=== PATIENT | female | born 1980 | race Caucasian/White ===

== ENCOUNTER 2020-03-09 08:03 | Emergency (ER) | payer OTHER ==
[~2020-03-09] VITALS: Ht 162.6 cm; Wt 68.0 kg
[~2020-03-09 08:03] MED LIST: ACYCLOVIR 400400 MG PO; ATIVAN0.5 MG PO; CEFDINIR300 MG PO; CELEXA; CELEXA10 MG PO; FLAGYL500 M1 PO; HYDROXYZINE HCL25 M2 PO; IBUPROFEN 600600 M1 PO; MACROBID 100 M100 M1 PO; MIDOL CAPLET1 EAC1 PO; NORCO 5-325 TA1 EACH PO; ORTHO-CYCLEN1 EACH; PREMARIN; PRENATAL PO; PROTONIX40 M1 PO; ZOFRAN ODT4 MG PO; ZOFRAN4 MG PO
[2020-03-09 08:50] LABS: HEMATOCRIT 43.1 % (37.0-47.0); HEMOGLOBIN 14.3 gm/dL (12.0-15.0); MCH 32.7 pg (26.0-34.0); MCHC 33.2 g/dL (28.0-37.0); MCV 98.3 fL (80.0-100.0); RBC 4.38 mil/uL (4.20-5.00); WBC 22.2 thou/uL (4.0-11.0)
[2020-03-09 09:18] LABS: URINE BILIRUBIN NEGATIVE (Negative); URINE BLOOD NEGATIVE (Negative); URINE CLARITY CLOUDY; URINE COLOR YELLOW; URINE GLUCOSE-RANDOM* NEGATIVE (Negative); URINE KETONES NEGATIVE (Negative); URINE LEUKOCYTES-REFLEX NEGATIVE (Negative); URINE NITRITE-REFLEX NEGATIVE (Negative); URINE PROTEIN (DIPSTICK) NEGATIVE (Negative); URINE SPECIFIC GRAVITY >= 1.030 (1.005-1.035); URINE UROBILINOGEN 0.2 E.U./dl (0.2-1.0)
[2020-03-09 10:16] LABS: ABSOLUTE NEUTROPHILS 16.2 thou/uL (1.4-8.2)
[2020-03-09 10:16] LABS: CALCIUM 9.1 mg/dL (8.5-10.1); CREATININE 0.5 mg/dL (0.6-1.0)
[2020-03-09 10:22] LABS: TOTAL BILIRUBIN 0.4 mg/dL (0.2-1.0); TOTAL PROTEIN 7.3 g/dL (6.4-8.2)
[2020-03-09 10:23] LABS: POTASSIUM 4.2 mmol/L (3.5-5.1)
[2020-03-09 10:25] LABS: ANISOCYTOSIS 1+; PLATELET COUNT 414 thou/uL (150-400)
[2020-03-09] MEDS ORDERED: ZOFRAN ODT4 MG PO (12:22)
[2020-03-09] MEDS ORDERED: PROTONIX40 M2 PO (12:22)
[2020-03-09] MEDS ORDERED: CIPROFLOXACIN500 M1 PO (12:22)
[2020-03-09] MEDS ORDERED: TRAMADOL 50 MG50 MG PO (12:22)
[2020-03-09] MEDS ORDERED: FLAGYL500 M1 PO (12:22)
[2020-03-09 12:30] VITALS: BP 104/56
== END 2020-03-09 12:30 | disposition home or self-care (01) ==
LOC: ER 08:03
PROVIDERS: Emergency Medicine
DX: K52.9 Noninfective gastroenteritis and colitis, unspecified (principal); R11.2 Nausea with vomiting, unspecified; R42 Dizziness and giddiness; K92.1 Melena; R30.0 Dysuria; I25.2 Old myocardial infarction; F32.9 Major depressive disorder, single episode, unspecified; F41.9 Anxiety disorder, unspecified; F17.210 Nicotine dependence, cigarettes, uncomplicated; Z90.49 Acquired absence of other specified parts of digestive tract; Z79.899 Other long term (current) drug therapy; Z88.8 Allergy status to other drugs, medicaments and biological substances

== ENCOUNTER 2020-07-04 14:56 | Emergency (ER) | payer OTHER ==
[~2020-07-04] VITALS: Ht 162.6 cm; Wt 68.0 kg
[~2020-07-04 14:56] MED LIST changes: +CIPROFLOXACIN500 M1 PO; +PROTONIX40 M2 PO; +TRAMADOL 50 MG50 MG PO
[2020-07-04 15:34] LABS: URINE BILIRUBIN NEGATIVE (Negative); URINE BLOOD NEGATIVE (Negative); URINE CLARITY CLEAR; URINE COLOR YELLOW; URINE GLUCOSE-RANDOM* NEGATIVE (Negative); URINE KETONES NEGATIVE (Negative); URINE LEUKOCYTES-REFLEX NEGATIVE (Negative); URINE NITRITE-REFLEX NEGATIVE (Negative); URINE PROTEIN (DIPSTICK) NEGATIVE (Negative); URINE SPECIFIC GRAVITY 1.015 (1.005-1.035); URINE UROBILINOGEN 0.2 E.U./dl (0.2-1.0)
[2020-07-04 15:53] LABS: BASOPHILS 1.2 % (0.0-2.0); EOSINOPHILS 1.5 % (0.0-3.0); HEMATOCRIT 40.3 % (37.0-47.0); HEMOGLOBIN 13.7 gm/dL (12.0-15.0); LYMPHOCYTES 25.3 % (24.0-44.0); MCH 32.9 pg (26.0-34.0); MCV 96.7 fL (80.0-100.0); MONOCYTES 6.4 % (1.0-8.0); PLATELET COUNT 346 thou/uL (150-400); POLYS 65.6 % (36.0-66.0); RBC 4.17 mil/uL (4.20-5.00); RDW 13.9 % (10.5-14.5); WBC 9.2 thou/uL (4.0-11.0)
[2020-07-04 16:06] LABS: CALCIUM 9.4 mg/dL (8.5-10.1); CREATININE 0.7 mg/dL (0.6-1.0)
[2020-07-04 16:13] LABS: ALBUMIN 4.1 g/dL (3.4-5.0); TOTAL BILIRUBIN 0.3 mg/dL (0.2-1.0); TOTAL PROTEIN 7.3 g/dL (6.4-8.2)
[2020-07-04] MEDS ORDERED: PREDNISONE 20 M20 MG PO (16:46)
[2020-07-04] MEDS ORDERED: ZOFRAN ODT4 MG PO (16:47)
[2020-07-04 17:14] VITALS: BP 120/78
== END 2020-07-04 17:31 | disposition home or self-care (01) ==
LOC: ER 14:56
PROVIDERS: Emergency Medicine
DX: R10.11 Right upper quadrant pain (principal); R10.31 Right lower quadrant pain; F17.210 Nicotine dependence, cigarettes, uncomplicated; Z90.49 Acquired absence of other specified parts of digestive tract; Z79.899 Other long term (current) drug therapy; Z88.8 Allergy status to other drugs, medicaments and biological substances